=== PATIENT | female | born 2000 ===

== ENCOUNTER 2024-04-25 13:56 | Outpatient (CLI) | payer OTHER, SELFPAY ==
--- NOTE | ~2024-04-25 | US_ITS ---
EXAMINATION: US pelvic complete w TV DATE: 04/25/2024 14:20 INDICATION: Abnormal uterine and vaginal bleeding. TECHNIQUE: Multiple transabdominal and transvaginal sonographic images of the pelvis were obtained. COMPARISON: None. FINDINGS: TRANSABDOMINAL ULTRASOUND: The uterus measures 7.1 x 3.9 x 3.5 cm. There is no free fluid in the pelvis. TRANSVAGINAL ULTRASOUND: The endometrial complex measures 5 mm in thickness. The right ovary measures 2.4 x 1.8 x 1.6 cm. The left ovary measures 6.6 x 4.1 x 4.0 cm. There is a 5.7 cm cyst in left ovary. There is normal vascula r flow in the ovaries. IMPRESSION: 1. 5.6 cm cyst in left ovary, likely benign. Pelvis ultrasound is recommended in one year. Reviewed, dictated and finalized at location E. IMPRESSION: 1. 5.6 cm cyst in left ovary, likely benign. Pelvis ultrasound is recommended i n one year.
== END 2024-04-25 13:57 ==
PROVIDERS: PCP Obstetrics & Gynecology; Visit Provider Obstetrics & Gynecology
DX: N83.202 Unspecified ovarian cyst, left side (principal); N93.9 Abnormal uterine and vaginal bleeding, unspecified
CPT/HCPCS: 76830; 76856